=== PATIENT | male | born 1970 | race Caucasian/White ===

== ENCOUNTER 2020-07-28 20:53 | Emergency (ER) | payer OTHER, SELFPAY ==
--- NOTE | 2020-07-28 | CT_ITS ---
EXAMINATION: CT CHEST, ABDOMEN AND PELVIS WITHOUT CONTRAST CLINICAL INFORMATION: Fall. Chest pain. Right hip pain. COMPARISON: None. TECHNIQUE: Multidetector volumetric CT imaging of the chest, abdomen and pelvis was obtained without oral or intravenous contrast. Coronal and sagittal reformatted images are performed at the CT scanner [This CT examination was performed using dose optimization techniques as appropriate, variously including the following: *Automated exposure control *Adjustment of mA and/or kV according to patient size (this includes techniques or standardized protocols for targeted exams where dose is matched to indication/reason for exam; i.e. extremities or head) *Use of iterative reconstruction technique] DLP: 1302 mGy-cm. FINDINGS: CT CHEST: Lungs: Mild centrilobular emphysematous change of lungs. There is no acute infiltrate. No interstitial reticular changes. No bronchiectasis. Lung nodules: Right lun. Right lower lobe axial image 43 series 6, 8 mm smooth bordered nodule Left lung: No suspicious lung nodules. Mediastinum: No mediastinal mass or fluid collection. No hematoma. Moderate volume of coronary artery calcifications. Small volume of calcifications of thoracic aorta at the thoracic aortic arch. Pleura: There is no pleural effusion. No pleural mass or thickening. Axilla: No lymphadenopathy. CT ABDOMEN AND PELVIS: Liver, Gallbladder and Biliary Tree: The liver is normal in size, shape, and attenuation. No focal hepatic lesion or biliary ductal dilatation is present. Gallbladder is contracted. No bile duct dilatation. Pancreas: No acute change of the pancreas. No mass. No pancreatic duct dilatation. Spleen: Spleen normal in size and contour. No focal lesion. Adrenal Glands: Adrenal glands are normal in size. No focal mass. Kidneys and Ureters: The kidneys are normal in size, shape, and attenuation. No hydronephrosis, hydroureter, or calculi seen. No perinephric stranding. Bladder: Unremarkable. Gastrointestinal Tract: The small and large bowel are unremarkable. The appendix is unremarkable. Mesentery: No focal inflammation. No free fluid. No free air. Abdominal Wall: No significant hernia is appreciated. Lymph Nodes: Normal. Vascular: Vascular calcifications of aorta and iliac arteries. No aneurysm. Pelvic Viscera: Unremarkable. Osseous Structures: Vacuum disc phenomenon L5-S1. There is osteosclerosis and spurring of the vertebral endplates. Orthopedic anchor in the left glenoid. Acute fractures: 1. There is an acute comminuted fracture of the right clavicle with displacement of fracture fragments. 2. There is an acute fracture of the right acetabulum involving the anterior column. Fracture fragments slightly displaced. IMPRESSION: 1. Acute fracture of the right clavicle. 2. Acute fracture of the anterior column of the right acetabulum. 3. There is mild emphysematous change of lungs. 8 mm smooth bordered lung nodule in right lower lobe. Various management parameters for solitary pulmonary nodules are in the literature. According to the UPDATED 2017 Fleischner Society recommendations, the advised follow-up imaging for a single solid nodule measuring 8 mm or greater is: Consider CT, PET/CT, or tissue sampling at 3 months. Reference: Guidelines for Management of Incidental Pulmonary Nodules Detected on CT Images: From the Fleischner Society 2017.
[2020-07-28 21:06] VITALS: BP 141/86; BP 170/94; PULSE 88; PULSE 89; RESP 18; TEMP 37.1; O2SAT 100; O2SAT 98; BMI 27.5
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
[2020-07-28 22:18] VITALS: BP 157/104; PULSE 79; RESP 16; O2SAT 96
[2020-07-28 22:35] LABS: MANUAL DIFF FLAG NO
[2020-07-28 22:37] LABS: Basophils Absolute Auto 0.1 X10*3/uL (0.0-0.2); Basophils Percent Auto 0.4 % (0-2); Eosinophils Absolute Auto 0.1 X10*3/uL (0.0-0.4); Eosinophils Percent Auto 0.5 % (0-4); Hematocrit 42.7 % (42-52); Hemoglobin 14.4 g/dl (14.0-18.0); Imm Gran Abs Auto 0.18 X10*3/uL (0.00-0.03); Imm Gran Pct Auto 0.9 % (0.0-0.4); Lymphocytes Absolute Auto 1.8 X10*3/uL (1.2-4.9); Lymphocytes Percent Auto 9.3 % (20-40); Mean Corpuscular HGB Conc 33.7 g/dl (31.0-36.0); Mean Corpuscular Hemoglobin 29.4 pg (27.0-33.0); Mean Corpuscular Volume 87.1 fL (80-98); Monocytes Percent Auto 5.2 % (2-11); Neutrophils Absolute Auto 16.4 X10*3/uL (2.0-8.3); Neutrophils Percent Auto 83.7 % (45-73); Platelet Count 242 X10*3/uL (160-400); Red Cell Distribution Width 13.2 % (11.0-16.0); White Blood Count 19.6 X10*3/uL (4.8-10.8)
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
[2020-07-28 23:04] LABS: Anion Gap 12 (12-20); Blood Urea Nitrogen 17 mg/dL (9-16); Calcium 9.1 mg/dL (8.4-10.2); Carbon Dioxide 28 mmol/L (22-29); Chloride 104 mmol/L (96-108); Creatinine Clr Calc Pharmacy 97.1; Estimated Glomerular Filt Rate > 60; Glucose Random 102 mg/dL (60-115); Sodium 140 mmol/L (135-145)
[2020-07-28 23:10] LABS: Troponin-I High Sensitivity 3.7 ng/L (<3.5-35.0)
[2020-07-28] MEDS: 0.9 % Sodium Chloride 1,000 ML 999 ML IVCONT (23:55)
[2020-07-29] VITALS: BP 153/93; PULSE 79; RESP 18; O2SAT 96
--- NOTE | 2020-07-29 | XR_ITS ---
EXAMINATION: XR HIP, RIGHT CLINICAL INFORMATION: Fracture COMPARISON: CT 07/28/2020 TECHNIQUE: 1 view of the right hip. FINDINGS: Nondisplaced fracture of the right acetabulum is noted extending to the lateral aspect of the superior pubic ramus. The pubic symphysis is well aligned. The right sacroiliac joint is intact. The femoral head articulates appropriately with the acetabulum. IMPRESSION: Nondisplaced right acetabular/superior pubic ramus fracture
--- NOTE | 2020-07-29 | XR_ITS ---
EXAMINATION: XR SHOULDER, RIGHT CLINICAL INFORMATION: Fracture COMPARISON: CT 07/28/2020 TECHNIQUE: One view of the right shoulder. FINDINGS: Comminuted right midclavicular fracture is again noted. There is inferior displacement of the distal fragment by one half shaft width. The acromioclavicular joint remains aligned. The glenohumeral joint remains aligned. The visualized ribs are intact. IMPRESSION: Comminuted right midclavicular fracture.
[2020-07-29 00:01] VITALS: RESP 20
[2020-07-29] MEDS: Morphine Sulfate 4 MG/ML CARTRIDGE IVPUSH (00:01)
[2020-07-29] MEDS: ondansetron HCL 4 MG/2 ML VIAL IVPUSH (00:01)
[2020-07-29] MEDS: HYDROmorphone HCl 1 MG/ML SYRINGE IVPUSH ×3 (00:32→02:08)
--- NOTE | 2020-07-29 00:51 | PC.NURSE ---
[facility] PT TX LINE CALL AT JUANA BARRAGAN REQUEST FOR TRAUMA TRANSFER @ THIS TIME SARA ANSWERS, TAKES PT INFO AND CALL BACK NUMBER AND SAYS SHE WILL CALL BACK FOR LAUREL WITH MD ON THE LINE SOON
--- NOTE | 2020-07-29 00:57 | PC.NURSE ---
RETURN CALL FROM SARA FROM [facility] PT TX LINE @ THIS TIME ASKS TO SPEAK WITH JUANA BARRAGAN TAKES OVER CALL RIGHT AWAY IS GIVEN ACCEPTING MD CHE OTT IS TOLD TO SEND THE PT TO [facility] ER
[2020-07-29 00:59] VITALS: BP 174/85; PULSE 93; RESP 18; O2SAT 95
[2020-07-29 02:00] VITALS: BP 150/74; PULSE 81; RESP 16; TEMP 37.1
--- NOTE | 2020-07-29 02:19 | PC.NURSE ---
NURSE TO NURSE GIVE TO GERARDO AT [facility].
== END 2020-07-29 02:42 | disposition short-term general hospital (02) ==
PROVIDERS: Nurse Practitioner Family; Emergency Provider Emergency Medicine; PCP Internal Medicine
DX: S72.001A Fracture of unspecified part of neck of right femur, initial encounter for closed fracture (principal); S42.021A Displaced fracture of shaft of right clavicle, initial encounter for closed fracture; V18.0XXA Pedal cycle driver injured in noncollision transport accident in nontraffic accident, initial encounter; R91.8 Other nonspecific abnormal finding of lung field; F17.200 Nicotine dependence, unspecified, uncomplicated; Y93.55 Activity, bike riding; Y92.414 Local residential or business street as the place of occurrence of the external cause; Y99.8 Other external cause status
CPT/HCPCS: 36415; 71250; 73020; 73501; 74176; 80048; 84484; 85025; 90471; 90715; 93005; 96361; 96374; 96375; 96376; 99285; 99291; J1170; J2270; J2405

== ENCOUNTER 2022-05-22 09:24 | Emergency (ER) | payer OTHER, SELFPAY ==
--- NOTE | ~2022-05-22 | XR_ITS ---
EXAMINATION: XR KNEE, LEFT CLINICAL INFORMATION: Pain. COMPARISON: None TECHNIQUE: Four views of the left knee. FINDINGS: No significant tricompartmental degenerative joint changes are seen. There is no acute fracture or dislocation. There is no joint effusion. Moderate prepatellar/pretibial soft tissue swelling is seen. XR/XR knee LT 2V IMPRESSION: Moderate prepatellar/pretibial soft tissue swelling without acute underlying osseous abnormality.
[2022-05-22 09:48] VITALS: BP 173/93; PULSE 102; RESP 20; TEMP 37.2; O2SAT 98; BMI 26.6
--- NOTE | 2022-05-22 10:00 | ED.GENADULT ---
HPI - General Adult General Chief complaint: Skin/Abscess/Foreign Body <JUANA Ward - Last Filed: 05/22/22 13:58> Stated complaint: ingrown hair on L knee <JUANA Wrad Last Filed: 05/22/22 13:58> Time Seen by Provider: 05/22/22 09:55 <JUANA Ward Last Filed: 05/22/22 13:58> Source: patient <JUANA Ward Last Filed: 05/22/22 13:58> Mode of arrival: ambulatory (limping) <JUANA Ward Last Filed: 05/22/22 13:58> Limitations: no limitations <JUANA Ward Last Filed: 05/22/22 13:58> History of Present Illness HPI narrative: Patient is a 52 year old male presenting to the emergency department today with left lower leg pain and feeling unwell. Patient states that this last Sunday, he picked open an ingrown hair and now has swelling and redness. Patient states that he now can't bear weight on his left leg. Patient states that he has not seen a doctor in at least a decade. Patient denies any dizziness, lightheadedness, abdominal pain, nausea, vomiting, blurry vision, double vision, loss of vision, chest pain, difficulty breathing, shortness of breath, back pain, night sweats, pain with urination, increased urinary frequency, increased urinary urgency, blood in his urine or stool, syncope or a near syncopal episode, recent trauma or falls, bowel incontinence, bladder incontinence, bowel retention, bladder retention, or any other complaints at this time. <JUANA Ward Last Filed: 05/22/22 13:58> Onset (ago): day(s) (2) <JUANA Ward - Last Filed: 05/22/22 13:58> Location: left and lower extremity <JUANA Ward Last Filed: 05/22/22 13:58> Radiation: non-radiation <JUANA Ward Last Filed: 05/22/22 13:58> Severity: moderate <JUANA Ward Last Filed: 05/22/22 13:58> Severity scale (1-10): 5 <JUANA Ward Last Filed: 05/22/22 13:58> Quality: aching <JUANA Ward - Last Filed: 05/22/22 13:58> Pain Consistency: constant <JUANA Ward - Last Filed: 05/22/22 13:58> Relieving factors: none <JUANA Ward Last Filed: 05/22/22 13:58> Exacerbating factors: movement <JUANA Ward - Last Filed: 05/22/22 13:58> Associated symptoms: diaphoresis and fever/chills <JUANA Ward - Last Filed: 05/22/22 13:58> Treatments prior to arrival: none <JUANA Ward Last Filed: 05/22/22 13:58> Related Data Home medications: Previous Rx's Medication Instructions Recorded cephalexin 500 mg capsule 500 mg PO Q6H 7 days #28 caps 05/22/22 doxycycline hyclate 100 mg tablet 100 mg PO BID 7 days #14 tabs 05/22/22 <JUANA Ward - Last Filed: 05/22/22 13:58> Allergies/adverse reactions: Allergies Allergy/AdvReac Type Severity Reaction Status Date / Time No Known Allergies Allergy Verified 07/28/20 22:16 <JUANA Ward - Last Filed: 05/22/22 13:58> Review of Systems Constitutional: Constitutional: Reports no additional constitutional complaints, Denies chills, Reports fever(s) and Denies night sweats <JUANA Ward - Last Filed: 05/22/22 13:58> Eyes: Eyes: Reports no additional eye complaints, Denies blurry vision, Denies change in vision, Denies diplopia, Denies eye discharge, Denies loss of vision and Denies eye pain <JUANA Ward - Last Filed: 05/22/22 13:58> ENT: Denies dizziness <JUANA Ward - Last Filed: 05/22/22 13:58> Cardiovascular: Cardiovascular: Reports no additional cardiovascular complaints, Denies chest pain, Denies lightheadedness, Denies Loss of Consciousness and Denies dyspnea <JUANA Ward - Last Filed: 05/22/22 13:58> Respiratory: Respiratory: Reports no additional respiratory complaints and Denies dyspnea <JUANA Ward - Last Filed: 05/22/22 13:58> Gastrointestinal: Gastrointestinal: Reports no additional gastrointestinal complaints, Denies abdominal pain, Denies melena, Denies hematochezia, Denies change in bowel habits and Denies change in stool character <JUANA Ward - Last Filed: 05/22/22 13:58> Genitourinary: Genitourinary: Reports no additional male genitourinary complaints, Denies hematuria, Denies oliguria, Denies difficulty urinating, Denies dysuria, Denies urinary frequency, Denies urinary hesitancy, Denies urinary incontinence and Denies urinary urgency <JUANA Ward - Last Filed: 05/22/22 13:58> Musculoskeletal: Musculoskeletal: Reports no additional musculoskeletal complaints, Denies numbness and Denies tingling <JUANA Ward - Last Filed: 05/22/22 13:58> Comments: left knee pain and swelling <JUANA Ward - Last Filed: 05/22/22 13:58> Neurologic: Denies dizziness, Denies loss of vision, Denies numbness and Denies tingling <JUANA Ward - Last Filed: 05/22/22 13:58> Psychiatric: Psychiatric: Reports no additional psychiatric complaints <JUANA Ward - Last Filed: 05/22/22 13:58> Endocrine: Endocrine: Reports no additional endocrine complaints <JUANA Ward - Last Filed: 05/22/22 13:58> Hematologic/Lymphatic: Hematologic/Lymphatic: Reports no additional hematologic/lymphatic complaints <JUANA Ward - Last Filed: 05/22/22 13:58> Allergic/Immunologic: Allergic/Immunologic: Reports no additional allergic/immunologic complaints <JUANA Ward - Last Filed: 05/22/22 13:58> PMFSH Past Medical History Attestation statement: The following information was validated with the patient. <JUANA Ward Last Filed: 05/22/22 13:58> Source: old records reviewed <JUANA Ward Last Filed: 05/22/22 13:58> Surgical History: Surgical History H/O shoulder surgery <JUANA Ward - Last Filed: 05/22/22 13:58> Social History Social History: Social History Alcohol intake: never Patient Tobacco Use Status: Current everyday Tobacco user Use of substances other than those prescribed or required for medical reasons: No Substance Use Type: Marijuana Advance Directives: No Advance Directives Information Provided: Yes <JUANA Ward - Last Filed: 05/22/22 13:58> Physical Exam ED Vital Signs: Vital Signs - 24 hr 05/22/22 09:48 05/22/22 13:42 Temperature 99 F Pulse Rate 102 H 96 Respiratory Rate 20 18 Blood Pressure 173/93 H 173/89 H Pulse Oximetry 98 98 Oxygen Delivery Method Room Air Room Air BMI result Body Mass Index 26.6 <JUANA Ward - Last Filed: 05/22/22 13:58> Vital Signs - 24 hr 05/22/22 09:48 05/22/22 13:42 Temperature 99 F Pulse Rate 102 H 96 Respiratory Rate 20 18 Blood Pressure 173/93 H 173/89 H Pulse Oximetry 98 98 Oxygen Delivery Method Room Air Room Air BMI result Body Mass Index 26.6 <Bala Boyer MD - Last Filed: 05/22/22 10:28> Const General: cooperative, no acute distress, alert and awake <JUANA Ward - Last Filed: 05/22/22 13:58> Nutritional Appearance: well nourished <JUANA Ward - Last Filed: 05/22/22 13:58> Orientation/consciousness: patient oriented x3 <JUANA Ward - Last Filed: 05/22/22 13:58> Limitations: no limitations <JUANA Ward Last Filed: 05/22/22 13:58> HENMT Head: Yes normal to inspection and Yes atraumatic <JUANA Ward - Last Filed: 05/22/22 13:58> Ears: hearing grossly normal bilaterally and external ears normal <JUANA Ward Last Filed: 05/22/22 13:58> General nose exam: Normal external nose present, no nasal discharge noted and no epistaxis <Dominique Vanegas WA - Last Filed: 05/22/22 13:58> Face and sinus: Yes normal facial exam, No abrasion and No laceration <Dominique Vanegas WA - Last Filed: 05/22/22 13:58> Mouth: Normal oral and palatal mucosa present, no drooling and no muffled voice <Dominique Vanegas WA - Last Filed: 05/22/22 13:58> Eyes General: appearance normal, both eyes and all related structures <Dominique Vanegas [place] - Last Filed: 05/22/22 13:58> Periorbital: periorbital findings normal <Dominique Vanegas WA - Last Filed: 05/22/22 13:58> Eyelids: Yes eyelids normal <Dominique Vanegas WA - Last Filed: 05/22/22 13:58> Conjunctivae: conjunctivae normal <Dominique Vanegas WA - Last Filed: 05/22/22 13:58> Pupils: Equal, round and reactive pupils present <Dominique Velezzane [place] - Last Filed: 05/22/22 13:58> EOM: EOMs intact bilaterally <Dominique Velezzane WA - Last Filed: 05/22/22 13:58> Neck Neck: Yes normal visual inspection, Yes full ROM and Yes no lymphadenopathy <Dominique Velezzane [place] - Last Filed: 05/22/22 13:58> Chest Chest palpation & inspection: normal inspection of the chest <Dominique Velezzane [facility] Last Filed: 05/22/22 13:58> Resp Effort & Inspection: normal respiratory effort and able to speak in complete sentences <Dominique Velezzane [facility] Last Filed: 05/22/22 13:58> Auscultation: clear to auscultation bilaterally <Dominique Velezzane [place] - Last Filed: 05/22/22 13:58> Cardio Rate: tachycardic <Dominique Velezzane [place] - Last Filed: 05/22/22 13:58> Rhythm: regular rhythm <Dominique VelezJUANA degroot - Last Filed: 05/22/22 13:58> GI Inspection: Yes normal to inspection <Dominique Guilherme [place] - Last Filed: 05/22/22 13:58> Skin Other: erythema to the left knee with 1 small open area of drainage <Dominique Velezzane PA - Last Filed: 05/22/22 13:58> Neuro General: patient oriented x3 and moves all extremities <Dominique Velezzane PA - Last Filed: 05/22/22 13:58> Cranial nerves: Yes Equal, round and reactive pupils present <Dominique Vanegas PA - Last Filed: 05/22/22 13:58> Cognition (Neuro): normal cognition <Dominique Velezzane PA - Last Filed: 05/22/22 13:58> Motor exam (neuro): 5/5 motor strength present throughout <Dominique Velezzane PA - Last Filed: 05/22/22 13:58> Sensory Exam: Normal double simultaneous stimulation for sensation <Dominique Velezzane PA - Last Filed: 05/22/22 13:58> Coordination: [id number] test normal <Dominique Velezzane PA - Last Filed: 05/22/22 13:58> Extrem Other: minimal pain with ROM of the left knee with left knee swelling and erythema <Dominique Velezzane PA - Last Filed: 05/22/22 13:58> General: Yes capillary refill normal <Dominique Velezzane PA - Last Filed: 05/22/22 13:58> Psych Appearance: grossly normal <Dominiqueaureliano Velezzane PA - Last Filed: 05/22/22 13:58> Mental Status: mental status grossly normal <Dominique VelezJUANA degroot - Last Filed: 05/22/22 13:58> Affect: normal affect <Dominique VanegasJUANA degroot - Last Filed: 05/22/22 13:58> Attitude: cooperative <Dominique Velezzane PA - Last Filed: 05/22/22 13:58> Thought process: Normal thought process present <JUANA Ward - Last Filed: 05/22/22 13:58> Thought content: Normal thought content present <Dominique JUANA Vanegas - Last Filed: 05/22/22 13:58> Insight: Good insight present (Psych) <Dominique JUANA Vanegas - Last Filed: 05/22/22 13:58> Course Reevaluation(s) Reevaluation #1: patient with erythema down his leg with light discharge from skin just below the knee. Patient making sepsis criteria will admit for cellulitis. Knee with no effusion, FROM no evidence of septic joint. <Bala Boyer MD - Last Filed: 05/22/22 10:28> Time: 10: <Bala Boyer MD - Last Filed: 05/22/22 10:28> Medical Decision Making MDM Narrative Medical decision making narrative: Patient is a 52 year old male presenting to the emergency department today with left lower leg pain. Patient's physical exam showed a tachycardic and febrile individual with significant erythema, warmth, and swelling to the left lower leg, consistent with cellulitis. Patient's blood work showed an elevated white blood cell count of 18.3, ESR of 23, and a CRP of 14.46. Patient's left knee x-ray showed no acute mick process. Patient was immediately called a sepsis alert and received IV Vancomycin and Rocephin. Patient did not have an elevated lactic acid at 1.3 and was never hypotensive here in the department. Patient did not need fluid bolus. Patient was advised the best course of action would be admission to the hospital however, the patient refused. I explained, in detail, the risks of the patient leaving the hospital against medical advice including , permanent disability, and increased pain. Patient verbalized understanding of all risks and stated that he would like to leave anyway. I explained my physical exam findings as well as all test results to the patient. I answered all questions asked by the patient. I stressed the importance of the patient taking his medication as prescribed. I stressed the importance of the patient following up with his primary care provider. I stressed the importance of the patient returning in 3 days for a re-evaluation. I stressed the importance of the patient returning to the emergency department immediately if his symptoms were to worsen or if he were to develop any dizziness, shortness of breath, difficulty breathing, chest pain, blurry vision, loss of vision, nausea, vomiting, abdominal pain, fever, chills, back pain, or any other complaints. Patient verbalized agreement and understanding with this treatment plan and left against medical advice. <JUANA Ward - Last Filed: 05/22/22 13:58> Differential Diagnosis Differential Diagnosis: cellulitis <JUANA Ward - Last Filed: 05/22/22 13:58> Medical Records Medical records reviewed: Yes I reviewed the patient's medical records. <JUANA Ward - Last Filed: 05/22/22 13:58> Lab Data Lab results reviewed: Yes I reviewed the patient's lab results. <JUANA Ward - Last Filed: 05/22/22 13:58> Result diagrams: : 05/22/22 10:32 05/22/22 10:32 <JUANA Ward - Last Filed: 05/22/22 13:58> Labs: Lab Results 05/22/22 05/22/22 05/22/22 Range/Units 10:32 10:32 10:32 WBC 18.3 H (4.8-10.8) X10*3/uL RBC 5.40 (4.60-5.80) X10*6/uL Hgb 15.3 (14.0-18.0) g/dl Hct 46.1 (42.0-52.0) % MCV 85.4 (80.0-98.0) fL MCH 28.3 (27.0-33.0) pg MCHC 33.2 (31.0-36.0) g/dl RDW 13.2 (11.0-16.0) % Plt Count 207 (160-400) X10*3/uL MPV 10.6 (9.4-12.4) fL Immature Gran % (Auto) 0.5 H (0.0-0.4) % Neut % (Auto) 85.9 H (45-73) % Lymph % (Auto) 7.4 L (20-40) % [place] % (Auto) 5.4 (2-11) % Eos % (Auto) 0.4 (0-4) % Baso % (Auto) 0.4 (0-2) % Lymph # (Auto) 1.4 (1.2-4.9) X10*3/uL [place] # (Auto) 1.0 (0.1-1.2) X10*3/uL Eos # (Auto) 0.1 (0.0-0.4) X10*3/uL Baso # (Auto) 0.1 (0.0-0.2) X10*3/uL Abs Immat Gran (auto) 0.10 H (0.00-0.03) X10*3/uL Absolute Neuts (auto) 15.7 H (2.0-8.3) x10*3/uL Absolute Nucleated RBC 0.000 (0.0-0.012) X10*3/uL Nucleated RBC % (auto) 0.0 (0.0-0.2) /100WBC ESR (0-15) MM/HR Sodium 136 (135-145) mmol/L Potassium 4.0 (3.3-5.1) mmol/L Chloride 102 (96-108) mmol/L Carbon Dioxide 24 (22-29) mmol/L Anion Gap 14 (12-20) BUN 12 (9-16) mg/dL Creatinine 0.84 (0.5-1.4) mg/dL Estim Creat Clear Calc 93.9 Estimated GFR > 60 Random Glucose 177 H D (60-115) mg/dL Lactic Acid (0.5-2.0) mmol/L Calcium 9.0 (8.4-10.2) mg/dL Magnesium 2.0 (1.6-2.6) mg/dL Total Bilirubin 0.5 (0.0-1.0) mg/dL AST 19 (5-37) U/L ALT 19 (0-40) U/L Alkaline Phosphatase 77 (39-117) U/L C-Reactive Protein 14.46 H (< or = 0.50) mg/dL Total Protein 7.0 (6.5-8.0) g/dL Albumin 4.0 (3.5-5.0) g/dL COVID-19 (GABRIEL) Negative (Negative) COVID-19 Clin Com See Note 05/22/22 05/22/22 Range/Units 10:32 10:35 WBC (4.8-10.8) X10*3/uL RBC (4.60-5.80) X10*6/uL Hgb (14.0-18.0) g/dl Hct (42.0-52.0) % MCV (80.0-98.0) fL MCH (27.0-33.0) pg MCHC (31.0-36.0) g/dl RDW (11.0-16.0) % Plt Count (160-400) X10*3/uL MPV (9.4-12.4) fL Immature Gran % (Auto) (0.0-0.4) % Neut % (Auto) (45-73) % Lymph % (Auto) (20-40) % [place] % (Auto) (2-11) % Eos % (Auto) (0-4) % Baso % (Auto) (0-2) % Lymph # (Auto) (1.2-4.9) X10*3/uL [place] # (Auto) (0.1-1.2) X10*3/uL Eos # (Auto) (0.0-0.4) X10*3/uL Baso # (Auto) (0.0-0.2) X10*3/uL Abs Immat Gran (auto) (0.00-0.03) X10*3/uL Absolute Neuts (auto) (2.0-8.3) x10*3/uL Absolute Nucleated RBC (0.0-0.012) X10*3/uL Nucleated RBC % (auto) (0.0-0.2) /100WBC ESR 23 H (0-15) MM/HR Sodium (135-145) mmol/L Potassium (3.3-5.1) mmol/L Chloride (96-108) mmol/L Carbon Dioxide (22-29) mmol/L Anion Gap (12-20) BUN (9-16) mg/dL Creatinine (0.5-1.4) mg/dL Estim Creat Clear Calc Estimated GFR Random Glucose (60-115) mg/dL Lactic Acid 1.3 (0.5-2.0) mmol/L Calcium (8.4-10.2) mg/dL Magnesium (1.6-2.6) mg/dL Total Bilirubin (0.0-1.0) mg/dL AST (5-37) U/L ALT (0-40) U/L Alkaline Phosphatase (39-117) U/L C-Reactive Protein (< or = 0.50) mg/dL Total Protein (6.5-8.0) g/dL Albumin (3.5-5.0) g/dL COVID-19 (GABRIEL) (Negative) COVID-19 Clin Com <JUANA Ward - Last Filed: 05/22/22 13:58> Lab Results 05/22/22 05/22/22 05/22/22 Range/Units 10:32 10:32 10:32 WBC 18.3 H (4.8-10.8) X10*3/uL RBC 5.40 (4.60-5.80) X10*6/uL Hgb 15.3 (14.0-18.0) g/dl Hct 46.1 (42.0-52.0) % MCV 85.4 (80.0-98.0) fL MCH 28.3 (27.0-33.0) pg MCHC 33.2 (31.0-36.0) g/dl RDW 13.2 (11.0-16.0) % Plt Count 207 (160-400) X10*3/uL MPV 10.6 (9.4-12.4) fL Immature Gran % (Auto) 0.5 H (0.0-0.4) % Neut % (Auto) 85.9 H (45-73) % Lymph % (Auto) 7.4 L (20-40) % [place] % (Auto) 5.4 (2-11) % Eos % (Auto) 0.4 (0-4) % Baso % (Auto) 0.4 (0-2) % Lymph # (Auto) 1.4 (1.2-4.9) X10*3/uL [place] # (Auto) 1.0 (0.1-1.2) X10*3/uL Eos # (Auto) 0.1 (0.0-0.4) X10*3/uL Baso # (Auto) 0.1 (0.0-0.2) X10*3/uL Abs Immat Gran (auto) 0.10 H (0.00-0.03) X10*3/uL Absolute Neuts (auto) 15.7 H (2.0-8.3) x10*3/uL Absolute Nucleated RBC 0.000 (0.0-0.012) X10*3/uL Nucleated RBC % (auto) 0.0 (0.0-0.2) /100WBC ESR (0-15) MM/HR Sodium 136 (135-145) mmol/L Potassium 4.0 (3.3-5.1) mmol/L Chloride 102 (96-108) mmol/L Carbon Dioxide 24 (22-29) mmol/L Anion Gap 14 (12-20) BUN 12 (9-16) mg/dL Creatinine 0.84 (0.5-1.4) mg/dL Estim Creat Clear Calc 93.9 Estimated GFR > 60 Random Glucose 177 H D (60-115) mg/dL Lactic Acid (0.5-2.0) mmol/L Calcium 9.0 (8.4-10.2) mg/dL Magnesium 2.0 (1.6-2.6) mg/dL Total Bilirubin 0.5 (0.0-1.0) mg/dL AST 19 (5-37) U/L ALT 19 (0-40) U/L Alkaline Phosphatase 77 (39-117) U/L C-Reactive Protein 14.46 H (< or = 0.50) mg/dL Total Protein 7.0 (6.5-8.0) g/dL Albumin 4.0 (3.5-5.0) g/dL COVID-19 (GABRIEL) Negative (Negative) COVID-19 Clin Com See Note 05/22/22 05/22/22 Range/Units 10:32 10:35 WBC (4.8-10.8) X10*3/uL RBC (4.60-5.80) X10*6/uL Hgb (14.0-18.0) g/dl Hct (42.0-52.0) % MCV (80.0-98.0) fL MCH (27.0-33.0) pg MCHC (31.0-36.0) g/dl RDW (11.0-16.0) % Plt Count (160-400) X10*3/uL MPV (9.4-12.4) fL Immature Gran % (Auto) (0.0-0.4) % Neut % (Auto) (45-73) % Lymph % (Auto) (20-40) % [place] % (Auto) (2-11) % Eos % (Auto) (0-4) % Baso % (Auto) (0-2) % Lymph # (Auto) (1.2-4.9) X10*3/uL [place] # (Auto) (0.1-1.2) X10*3/uL Eos # (Auto) (0.0-0.4) X10*3/uL Baso # (Auto) (0.0-0.2) X10*3/uL Abs Immat Gran (auto) (0.00-0.03) X10*3/uL Absolute Neuts (auto) (2.0-8.3) x10*3/uL Absolute Nucleated RBC (0.0-0.012) X10*3/uL Nucleated RBC % (auto) (0.0-0.2) /100WBC ESR 23 H (0-15) MM/HR Sodium (135-145) mmol/L Potassium (3.3-5.1) mmol/L Chloride (96-108) mmol/L Carbon Dioxide (22-29) mmol/L Anion Gap (12-20) BUN (9-16) mg/dL Creatinine (0.5-1.4) mg/dL Estim Creat Clear Calc Estimated GFR Random Glucose (60-115) mg/dL Lactic Acid 1.3 (0.5-2.0) mmol/L Calcium (8.4-10.2) mg/dL Magnesium (1.6-2.6) mg/dL Total Bilirubin (0.0-1.0) mg/dL AST (5-37) U/L ALT (0-40) U/L Alkaline Phosphatase (39-117) U/L C-Reactive Protein (< or = 0.50) mg/dL Total Protein (6.5-8.0) g/dL Albumin (3.5-5.0) g/dL COVID-19 (GABRIEL) (Negative) COVID-19 Clin Com <Bala Boyer MD - Last Filed: 05/22/22 10:28> Imaging Data Left knee x-ray: Attestation: I personally reviewed and interpreted this imaging study as follows: <JUANA Ward - Last Filed: 05/22/22 13:58> My impression: No acute mick process. <JUANA Ward - Last Filed: 05/22/22 13:58> Radiologist's impression: EXAMINATION: XR KNEE, LEFT CLINICAL INFORMATION: Pain.? COMPARISON: None? TECHNIQUE: Four views of the left knee. FINDINGS: No significant tricompartmental degenerative joint changes are seen. There is no acute fracture or dislocation. There is no joint effusion. Moderate prepatellar/pretibial soft tissue swelling is seen. XR/XR knee LT 2V IMPRESSION: Moderate prepatellar/pretibial soft tissue swelling without acute underlying osseous abnormality. Dictated By: Topher Chau MD Signed By: Electronically signed by Topher Chau MD 05/22/22 1101 <JUANA Ward - Last Filed: 05/22/22 13:58> Critical Care Time Critical Care Time Critical Care Time: Yes <JUANA Ward - Last Filed: 05/22/22 13:58> Total Critical Care Time: 30 <JUANA Ward - Last Filed: 05/22/22 13:58> Attestation: I spent 30 minutes of Critical Care Time with this patient. This does not include time spent on separately reported billable procedures. <JUANA Ward - Last Filed: 05/22/22 13:58> Discharge Plan Discharge Clinical Impression: Cellulitis <JUANA Ward - Last Filed: 05/22/22 13:58> Patient Disposition: Left Against Medical Advice <JUANA Ward - Last Filed: 05/22/22 13:58> Instructions: Cellulitis (ED) <JUANA Ward - Last Filed: 05/22/22 13:58> Additional Instructions: Return to the ED in 3 days for a wound recheck. Follow up with your primary care provider. Return to the emergency department immediately if your symptoms worsen or if you develop any dizziness, shortness of breath, difficulty breathing, chest pain, blurry vision, loss of vision, nausea, vomiting, abdominal pain, fever, chills, back pain, or any other complaints. <JUANA Ward - Last Filed: 05/22/22 13:58> Prescriptions: New cephalexin 500 mg capsule 500 mg PO Q6H 7 Days Qty: 28 0RF doxycycline hyclate 100 mg tablet 100 mg PO BID 7 Days Qty: 14 0RF <JUANA Ward - Last Filed: 05/22/22 13:58> Referrals: Melvin Wallace MD [Primary Care Provider] - <JUANA Ward - Last Filed: 05/22/22 13:58> Stand Alone Forms: Against Medical Advice <JUANA Ward - Last Filed: 05/22/22 13:58> Interventions: ED Discharge Assessment Last Done: 05/22/22 13:48 <JUANA Ward - Last Filed: 05/22/22 13:58> Discharge Date/Time: 05/22/22 13:49 <JUANA Ward - Last Filed: 05/22/22 13:58> Print Language: Ethiopian <JUANA Ward - Last Filed: 05/22/22 13:58>
[2022-05-22] MEDS: cefTRIAXone sodium 2 GM in 0.9 % Sodium Chloride 50 ML IV (10:38)
[2022-05-22 10:39] LABS: MANUAL DIFF FLAG NO
[2022-05-22 10:41] LABS: Basophils Absolute Auto 0.1 X10*3/uL (0.0-0.2); Basophils Percent Auto 0.4 % (0-2); Eosinophils Absolute Auto 0.1 X10*3/uL (0.0-0.4); Eosinophils Percent Auto 0.4 % (0-4); Hematocrit 46.1 % (42.0-52.0); Hemoglobin 15.3 g/dl (14.0-18.0); Imm Gran Pct Auto 0.5 % (0.0-0.4); Lymphocytes Absolute Auto 1.4 X10*3/uL (1.2-4.9); Lymphocytes Percent Auto 7.4 % (20-40); Mean Corpuscular HGB Conc 33.2 g/dl (31.0-36.0); Mean Corpuscular Hemoglobin 28.3 pg (27.0-33.0); Mean Corpuscular Volume 85.4 fL (80.0-98.0); Mean Platelet Volume 10.6 fL (9.4-12.4); Monocytes Percent Auto 5.4 % (2-11); Neutrophils Absolute Auto 15.7 x10*3/uL (2.0-8.3); Neutrophils Percent Auto 85.9 % (45-73); Platelet Count 207 X10*3/uL (160-400); Red Cell Distribution Width 13.2 % (11.0-16.0); White Blood Count 18.3 X10*3/uL (4.8-10.8)
--- NOTE | 2022-05-22 10:52 | PC.NURSE ---
PT SEEN BY PROVIDER UPON ARRIVAL. XRAY COMPLETED. SEPSIS ALERT INITIATED. LABS DRAWN IV INSERTED. IV ABX INFUSING. PHARMACY CALLED FOR VANCO IT IS NOT AVAILABLE IN OUR [facility]
[2022-05-22 10:53] LABS: Lactic Acid 1.3 mmol/L (0.5-2.0)
[2022-05-22 10:56] LABS: COVID-19 Test Negative (Negative)
[2022-05-22 10:59] LABS: Alanine Aminotransferase 19 U/L (0-40); Alkaline Phosphatase 77 U/L (39-117); Anion Gap 14 (12-20); Aspartate Amino Transferase 19 U/L (5-37); Bilirubin Total 0.5 mg/dL (0.0-1.0); Blood Urea Nitrogen 12 mg/dL (9-16); C Reactive Protein 14.46 mg/dL (< or = 0.50); Carbon Dioxide 24 mmol/L (22-29); Chloride 102 mmol/L (96-108); Creatinine Clr Calc Pharmacy 93.9; Estimated Glomerular Filt Rate > 60; Glucose Random 177 mg/dL (60-115); Sodium 136 mmol/L (135-145)
[2022-05-22 11:30] LABS: Erythrocyte Sedimentation Rate 23 MM/HR (0-15)
[2022-05-22] MEDS: Nicotine 21 MG PATCH.TD24 TRANSDERMA (11:55)
[2022-05-22 13:42] VITALS: BP 173/89; PULSE 96; RESP 18; O2SAT 98
== END 2022-05-22 13:49 | disposition left against medical advice (07) ==
PROVIDERS: Physician Assistant Medical; Emergency Provider Emergency Medicine; PCP Internal Medicine
DX: L03.116 Cellulitis of left lower limb (principal); M79.605 Pain in left leg; F17.200 Nicotine dependence, unspecified, uncomplicated; Z71.6 Tobacco abuse counseling; Z20.822 Contact with and (suspected) exposure to COVID-19; Z79.899 Other long term (current) drug therapy
CPT/HCPCS: 73560; 80053; 83605; 83735; 85025; 85652; 86140; 87040; 87635; 96365; 96366; 96367; 96375; 99284; J0696; J3370

== ENCOUNTER 2022-05-29 10:07 | Outpatient (REF) | payer OTHER, SELFPAY ==
[2022-05-29 11:24] LABS: MANUAL DIFF FLAG NO
[2022-05-29 11:26] LABS: Basophils Absolute Auto 0.1 X10*3/uL (0.0-0.2); Basophils Percent Auto 0.9 % (0-2); Eosinophils Absolute Auto 0.2 X10*3/uL (0.0-0.4); Hematocrit 43.3 % (42.0-52.0); Hemoglobin 14.3 g/dl (14.0-18.0); Imm Gran Abs Auto 0.17 X10*3/uL (0.00-0.03); Imm Gran Pct Auto 1.5 % (0.0-0.4); Lymphocytes Absolute Auto 2.5 X10*3/uL (1.2-4.9); Lymphocytes Percent Auto 22.2 % (20-40); Mean Corpuscular Hemoglobin 28.1 pg (27.0-33.0); Mean Corpuscular Volume 85.1 fL (80.0-98.0); Mean Platelet Volume 10.4 fL (9.4-12.4); Monocytes Absolute Auto 0.7 X10*3/uL (0.1-1.2); Monocytes Percent Auto 6.1 % (2-11); Neutrophils Absolute Auto 7.6 x10*3/uL (2.0-8.3); Neutrophils Percent Auto 67.3 % (45-73); Platelet Count 332 X10*3/uL (160-400); Red Blood Count 5.09 X10*6/uL (4.60-5.80); Red Cell Distribution Width 13.2 % (11.0-16.0); White Blood Count 11.3 X10*3/uL (4.8-10.8)
[2022-05-29 11:35] LABS: Estimated Average Glucose 120 mg/dL; Hemoglobin A1C 149.8498 umol/L; Hemoglobin A1c % 5.8 %
[2022-05-29 11:37] LABS: Alanine Aminotransferase 28 U/L (0-40); Albumin Level 3.9 g/dL (3.5-5.0); Alkaline Phosphatase 81 U/L (39-117); Anion Gap 16 (12-20); Aspartate Amino Transferase 16 U/L (5-37); Bilirubin Total 0.3 mg/dL (0.0-1.0); Blood Urea Nitrogen 13 mg/dL (9-16); C Reactive Protein 3.03 mg/dL (< or = 0.50); Calcium 8.7 mg/dL (8.4-10.2); Carbon Dioxide 24 mmol/L (22-29); Chloride 105 mmol/L (96-108); Estimated Glomerular Filt Rate > 60; Glucose Random 108 mg/dL (60-115); Potassium 4.7 mmol/L (3.3-5.1); Sodium 140 mmol/L (135-145)
[2022-05-29 13:17] LABS: Erythrocyte Sedimentation Rate 49 MM/HR (0-15)
== END 2022-05-29 10:08 | disposition home or self-care (01) ==
LOC: HO.HMGCLDS 10:07
PROVIDERS: PCP Internal Medicine; Visit Provider Internal Medicine
DX: R53.83 Other fatigue (principal); L03.90 Cellulitis, unspecified
CPT/HCPCS: 36415; 80053; 83036; 85025; 85652; 86140

== ENCOUNTER 2022-06-06 14:09 | Outpatient (REF) | payer OTHER, SELFPAY ==
--- NOTE | ~2022-06-06 | XR_ITS ---
EXAMINATION: XR CHEST CLINICAL INFORMATION: Questionable pneumonia COMPARISON: None TECHNIQUE: 2 views of the chest were obtained. FINDINGS: Lungs are clear by diaphragm is likely due to mild hyperinflation. No evidence of pneumonia or nodules. Cardiomediastinal silhouette is normal. Hardware is seen in the right clavicle XR/XR chest 2V IMPRESSION: No active cardiopulmonary disease. Emphysematous change
== END 2022-06-06 14:10 | disposition home or self-care (01) ==
LOC: HO.HMGCX 14:09
PROVIDERS: PCP Internal Medicine; Visit Provider Internal Medicine
DX: F17.200 Nicotine dependence, unspecified, uncomplicated (principal); Z87.09 Personal history of other diseases of the respiratory system
CPT/HCPCS: 71046

== ENCOUNTER 2023-11-26 10:26 | Outpatient (REF) | payer MEDICAID, SELFPAY ==
--- NOTE | ~2023-11-26 | XR_ITS ---
EXAMINATION: XR CLAVICLE, RIGHT XR SHOULDER, RIGHT CLINICAL INFORMATION: Trauma COMPARISON: Right shoulder radiograph from 07/29/2020 TECHNIQUE: 3 views of the right shoulder 2 views of the right clavicle FINDINGS: Status post plate and screw fixation of clavicular fracture. Orthopedic hardware is grossly intact. No acute visible fracture or dislocation. Mild degenerative arthropathy of the glenohumeral joint. Joint space alignment are otherwise maintained. Soft tissues are unremarkable. Visualized portions of the chest are unremarkable. XR/XR shoulder RT min 2V IMPRESSION: 1. Status post plate and screw fixation of clavicular fracture. Orthopedic hardware is grossly intact. 2. No acute visible fracture or dislocation. 3. Mild degenerative arthropathy of the glenohumeral joint.
--- NOTE | ~2023-11-26 | XR_ITS ---
EXAMINATION: XR CLAVICLE, RIGHT XR SHOULDER, RIGHT CLINICAL INFORMATION: Trauma COMPARISON: Right shoulder radiograph from 07/29/2020 TECHNIQUE: 3 views of the right shoulder 2 views of the right clavicle FINDINGS: Status post plate and screw fixation of clavicular fracture. Orthopedic hardware is grossly intact. No acute visible fracture or dislocation. Mild degenerative arthropathy of the glenohumeral joint. Joint space alignment are otherwise maintained. Soft tissues are unremarkable. Visualized portions of the chest are unremarkable. XR/XR clavicle RT IMPRESSION: 1. Status post plate and screw fixation of clavicular fracture. Orthopedic hardware is grossly intact. 2. No acute visible fracture or dislocation. 3. Mild degenerative arthropathy of the glenohumeral joint.
== END 2023-11-26 10:27 | disposition home or self-care (01) ==
LOC: HO.HMGCX 10:26
PROVIDERS: PCP Internal Medicine; Visit Provider Internal Medicine
DX: Z98.890 Other specified postprocedural states (principal); M12.9 Arthropathy, unspecified
CPT/HCPCS: 73000; 73030

== ENCOUNTER 2025-07-22 10:47 | Outpatient (REF) | payer OTHER, SELFPAY ==
[2025-07-22 18:12] LABS: MANUAL DIFF FLAG NO
[2025-07-22 18:20] LABS: Hematocrit 49.0 % (42.0-52.0); Hemoglobin 16.2 g/dl (14.0-18.0); Imm Gran Abs Auto 0.04 X10*3/uL (0.00-0.03); Imm Gran Pct Auto 0.4 % (0.0-0.4); Lymphocytes Absolute Auto 2.4 X10*3/uL (1.2-4.9); Mean Corpuscular HGB Conc 33.1 g/dl (31.0-36.0); Mean Corpuscular Hemoglobin 28.3 pg (27.0-33.0); Mean Corpuscular Volume 85.7 fL (80.0-98.0); NRBC Abs Auto 0.000 X10*3/uL (0.0-0.012); NRBC Pct Auto 0.0 /100WBC (0.0-0.2); Platelet Count 282 X10*3/uL (160-400); Red Blood Count 5.72 X10*6/uL (4.60-5.80); White Blood Count 9.3 X10*3/uL (4.8-10.8)
[2025-07-22 18:37] LABS: Alanine Aminotransferase 23 U/L (0-40); Albumin Level 4.3 g/dL (3.5-5.0); Alkaline Phosphatase 83 U/L (39-117); Anion Gap 12 (12-20); Aspartate Amino Transferase 31 U/L (5-37); Blood Urea Nitrogen 18 mg/dL (9-16); Calcium 9.2 mg/dL (8.4-10.2); Carbon Dioxide 23 mmol/L (22-29); Chloride 107 mmol/L (96-108); Cholesterol 215 mg/dL (<200); Estimated Glomerular Filt Rate > 60; HDL Cholesterol 50 mg/dL (>40); Magnesium 2.4 mg/dL (1.6-2.6); Potassium 4.2 mmol/L (3.3-5.1); Sodium 138 mmol/L (135-145); Total Protein 7.3 g/dL (6.5-8.0); Triglycerides 110 mg/dL (<150)
[2025-07-22 19:00] LABS: Folate 13.1 ng/mL (> or = 4.0); Vitamin B12 708 pg/mL (200-900)
[2025-07-23 04:50] LABS: HBS Num1 5.54 mIU/mL (0-7.99); HBsAGNum1 0.51 S/CO (0.00-0.99); HIV Num 1 0.06 S/CO (0.00-0.99); Hepatitis B Surface Antigen Negative (Negative); ~HepC Num1 0.05 S/CO (0.00-0.79); ~Hepatitis B Surface Antibody NONREACTIVE (Nonreactive); ~Hepatitis C Antibody Nonreactive (Nonreactive)
[2025-07-26 05:13] LABS: VITAMIN D (1,25 OH) D3 46 pg/mL; Vit D (1,25-Dihydroxy) Total 46 pg/mL (18-72); Vitamin D (1,25 OH) D2 <8 pg/mL
== END 2025-07-22 10:48 | disposition home or self-care (01) ==
LOC: HO.HKASLDS 10:47
PROVIDERS: PCP Student in an Organized Health Care Education/Training Program; Visit Provider Student in an Organized Health Care Education/Training Program
DX: Z76.89 Persons encountering health services in other specified circumstances (principal); Z13.9 Encounter for screening, unspecified; I10 Essential (primary) hypertension; M25.511 Pain in right shoulder; M25.512 Pain in left shoulder; G89.29 Other chronic pain; G47.00 Insomnia, unspecified; R05.3 Chronic cough; R53.83 Other fatigue; F17.210 Nicotine dependence, cigarettes, uncomplicated; Z71.6 Tobacco abuse counseling; Z98.890 Other specified postprocedural states; Z80.0 Family history of malignant neoplasm of digestive organs; Z80.42 Family history of malignant neoplasm of prostate
CPT/HCPCS: 36415; 80053; 80061; 82607; 82652; 82746; 83036; 83735; 85025; 86706; 86803; 87340; 87389

== ENCOUNTER 2025-07-22 10:47 | Outpatient (AMB) | payer OTHER, SELFPAY ==
--- NOTE | 2025-07-22 10:49 | A.OFFPC_ITS ---
Vital Signs 07/22/25 10:53 Height 5 ft 6.73 in Weight 168 lb 4 oz BMI 26.6 BP 166/101 H Blood Pressure Location Rt brachial Position Sitting Respiration 16 Pulse 76 Pulse Source Pulse Oximeter Temp 98 F Temp Source Oral Pulse Oximetry (%) 96 Oxygen Delivery Method Room Air Intake Visit Reasons: chronic pain Chemical Technician Required: No Accompanied by: Self / Same As Patient Allergies No Known Allergies Allergy (Verified 07/22/25 10:51) Tobacco use date assessed: 07/22/25 Dental Screening Dental Screen Date: 07/22/25 Did you have a dental visit in the last 12 months?: No Did you have a dental problem in the last 6 months where you did not have access to dental care?: No Was dental information given to patient?: No HPI HPI Comments History of Present Illness Details History of Present Illness The patient is a 55-year-old male presenting with chronic shoulder pain and elevated blood pressure. Chronic shoulder pain: - The patient reports bilateral shoulder pain with a history of multiple surgeries, including pins and plates in both shoulders. - The pain has persisted for several yea rs, impacting his ability to perform daily activities and play with his grandchildren. - Previous interventions include surgica l repairs and physical therapy, though the latter was not consistently pursued. Hypertension: - The patient has a history of elevated blood pressure, previously managed with medication that was discontinued due to side effects. - He reports no current use of antihyper tensive medication and experiences occasional agitation and fatigue. - A new prescription for lisinopril 10 m g was initiated to manage his blood pressure. History of clavicle fracture: - The patient sustained a clavicle fract ure five years ago, requiring surgical intervention with plates and screws. - He reports ongoing pain and numbness i n the shoulder area, affecting his range of motion. History of hip fracture: - The patient experienced a hip fracture five years ago, which was managed conservatively without surgery. - He underwent rehabilitation for the hi p, and reports occasional clicking sounds when moving. Tobacco use disorder: - The patient has a history of smoking o ne pack of cigarettes per day for several years. - He acknowledges the potential impact o n his health, including possible respiratory issues. Possible sleep apnea: - The patient reports difficulty sleepin g, with symptoms suggestive of sleep apnea, such as daytime fatigue and snoring. - A sleep study was recommended to furth er evaluate these symptoms. Review of Systems - Musculoskeletal: Reports chronic bilat eral shoulder pain, history of clavicle and hip fractures. - Cardiovascular: Reports elevated blood pressure, denies chest pain or palpitations. - Respiratory: Denies dyspnea, cough, or wheezing. - Neurological: Reports numbness in shou lder area, denies headaches or dizziness. - Sleep: Reports difficulty sleeping, po ssible sleep apnea symptoms. 10-point ROS reviewed and negative excep t as noted in HPI Past Medical History - History of clavicle fracture with surg ical intervention - History of hip fracture managed conser vatively - Hypertension, previously managed with medication - Tobacco use disorder Health Maintenance - Blood pressure monitoring at home with daily readings - Initiation of lisinopril 10 mg for hyp ertension management - Recommendation for a sleep study to ev aluate possible sleep apnea - Referral to physical therapy for [facility] - Pulmonary function test to assess lung health due to smoking history - CT scan of the lungs to screen for can cer Physical Exam General: Well-appearing, in no acute distress. Vital signs: Elevated blood pressure noted. HEENT: Normocephalic, atraumatic. PERRLA, EOMI. Conjunctiva clear, sclera anicteric. Oropharynx clear, mucous membranes moist. TMs intact bilaterally. Neck: Supple, no lymphadenopathy, no thyromegaly, no JVD or carotid bruits. Cardiovascular: RRR, normal S1/S2, no murmurs, rubs, or gallops. Peripheral pulses 2+ and symmetric. No edema. Respiratory: Lungs clear to auscultation bilaterally, no wheezes, rales, or rhonchi. Normal effort. Chronic nicotine use noted. Abdomen: Soft, non-tender, non-distended. Normoactive bowel sounds. No hepatosplenomegaly, no masses. MSK: Limited range of motion in both shoulders due to pain. History of clavicle surgery with plates and screws. No joint swelling or deformity. Normal gait. Skin: Warm, dry, intact. No rashes, lesions, or pallor. Neuro: Alert and oriented x3. Cranial nerves II-XII intact. Strength 5/5 thro ughout. Sensation intact. Reflexes 2+ symmetric. Normal coordination and gait. Psych: Appropriate mood and affect. Normal judgment and insight. Reports insomnia and agitation. Plan 1. Chronic Shoulder Pain - Plan includes referral to physical the rapy for rehabilitation and strengthening exercises. 2. Hypertension - Initiated lisinopril 10 mg daily, with follow-up in two weeks to assess blood pressure control. - Patient advised to monitor blood press ure at home twice daily and report readings. 3. Tobacco Use Disorder - Discussed the importance of smoking ce ssation and its impact on overall health. - Recommended pulmonary function test to assess lung health. 4. Possible Sleep Apnea - Recommended a sleep study to evaluate symptoms and confirm diagnosis. Discussion Notes I discussed with the patient the initiation of lisinopril 10 mg for hypertension management and the importance of monitoring blood pressure at home. We also talked about the need for a sleep study to evaluate possible sleep apnea symptoms. I emphasized the significance of smoking cessation and recommended a pulmonary function test to assess lung health. Additionally, I referred the patient to physical therapy for shoulder rehabilitation. Follow-up was scheduled in two weeks to reassess blood pressure control and review test results. Patient was informed and verbally consented to the use of an ambient scribe for clinic note documentation during this visit. Patient Instructions - Take lisinopril 10 mg daily as prescri bed. - Monitor blood pressure at home twice d aily and record the best reading. - Attend physical therapy sessions for [facility]. - Schedule and complete a sleep study to evaluate sleep apnea symptoms. - Undergo a pulmonary function test to [facility]. - Follow up in two weeks to review blood pressure readings and test results. [facility] Medical History (Updated 07/22/25 @ 11:31 by Theo Adkins MD) Insomnia Chronic hypertension Chronic shoulder pain Nicotine dependence Encounter for screening, unspecified Encounter to establish care Surgical History H/O shoulder surgery Family History (Updated 07/22/25 @ 11:01 by Misael Kauffman MA) Father Cancer of prostate Colon cancer Mother No problems noted. Social History (Updated 07/22/25 @ 11:04 by Misael Kauffman MA) Housing: House Alcohol intake: current Alcohol intake frequency: holidays/special occasions only Patient Tobacco Use Status: Current everyday Tobacco user Cigarette Packs Per Day: 1 Cigarettes Per Day: 20 Substance Use Type: Marijuana service: No Current occupational status: unemployed Cognitive needs: No Hearing needs: No Vision needs: Yes (readers ) Questionnaire PHQ-9 Over the last 2 weeks, how often have you been bothered by any of the following problems? 1. Little interest or pleasure in doing things: several days 2. Feeling down, depressed, or hopeless: more than half the days 3. Trouble falling or staying asleep, or sleeping too much: nearly every day 4. Feeling tired or having little energy: nearly every day 5. Poor appetite or overeating: several days 6. Feeling bad about yourself - or that you are a failure or have let yourself or your family down: several days 7. Trouble concentrating on things, such as reading the newspaper or watching television: not at all 8. Moving or speaking so slowly that other people could have noticed. Or the opposite - being so fidgety or restless that you have been moving around a lot more than usual: not at all 9. Thoughts that you would be better off or of hurting yourself in some way: not at all Total score: 11 Source: Developed by Drs. William Steward, Deepthi Calle, Franklin Nguyen and colleagues, with an educational jeny from [employer]. Thrive Questionnaire Date Thrive assessed: 07/22/25 I am a: Patient What is your living situation today?: I have a steady place to live Within the past 12 months, did the food you bought not last and you didn't have the money to get more?: Never true Within the past 12 months, did you worry whether your food would run out before you got money to buy more?: Never true Do you have trouble paying for medicines?: No Do you have trouble getting transportation to medical appointments?: No Do you have trouble paying your heating and electricity bill?: No Do you have trouble taking care of your child, family member or friend?: No Do you have trouble with day-to-day activities such as bathing, preparing meals, shopping, managing finances, etc.?: No Are you currently unemployed and looking for a job?: No Are you interested in more education?: No Please select the resources that you would like help with: None Currently or been in a relationship where the following occur: No concerns reported THRIVE Score: 0 AUDIT C Alcohol Use Questionnaire (AUDIT-C) 1. How often do you have a drink containing alcohol?: Monthly or less 2. How many drinks containing alcohol do you have on a typical day when you are drinking?: 1 or 2 3. How often do you have six or more drinks on one occasion?: Never Total Score: 1 THELMA-7 AMB Questionnaire THELMA-7 Date THELMA - 7 assessed: 07/22/25 Feeling nervous, anxious, or on edge: 3 = Nearly every day Not being able to stop or control worryin = More than half the days Worrying too much about different things: 3 = Nearly every day Trouble relaxin = Nearly every day Being so restless that it is hard to sit still: 3 = Nearly every day Becoming easily annoyed or irritable: 3 = Nearly every day Feeling afraid as if something awful might happen: 0 = Not at all Total THELMA-7 score (0-4 normal; 5-9 mild; 10-14 moderate; 15-21 severe): 17 Source: Developed by Drs. William Steward, Deepthi Calle, Franklin Nguyen and colleagues, with an educational jeny from [employer]. Physical exam (Primary Care) Vital Signs: Last Vital Signs Temp 98 F 07/22/25 10:53 Pulse 76 07/22/25 10:53 Resp 16 07/22/25 10:53 BP 166/101 H 07/22/25 10:53 Pulse Ox 96 07/22/25 10:53 Oxygen Delivery Method Room Air 07/22/25 10:53 BMI result Body Mass Index 26.6 Tobacco/Smoking Status: Tobacco use Status Tobacco use date assessed 07/22/25 07/22/25 11:10 Patient Tobacco Use Status Current everyday Tobacco 07/22/25 11:04 PHQ-9: PHQ-9 Score PHQ-9: Total score 11 07/22/25 11:10 Thrive Assessment: Date of Thrive Assessment Date Thrive assessed 07/22/25 07/22/25 11:10 Currently or been in a relationship where the following occur: No concerns reported Coding Level of Care Code New Pt Level 4 (47184) Diagnoses Encounter to establish care Z76.89 Encounter for screening, unspecified Z13.9 Nicotine dependence F17.200 Family history of colon cancer Z80.0 Family history of prostate cancer Z80.42 Hypertension I10 Chronic shoulder pain M25.519; G89.29 History of orthopedic surgery Z98.890 Chronic hypertension I10 Insomnia G47.00 Chronic cough R05.3 Fatigue R53.83 Assessment & Plan Assessment & Plan (1) Encounter to establish care: Code(s): Z76.89 - Persons encountering health services in other specified circumstances Category: Medical (2) Encounter for screening, unspecified: Code(s): Z13.9 - Encounter for screening, unspecified Category: Medical (3) Nicotine dependence: Code(s): F17.200 - Nicotine dependence, unspecified, uncomplicated Category: Medical (4) Family history of colon cancer: Code(s): Z80.0 - Family history of malignant neoplasm of digestive organs (5) Family history of prostate cancer: Code(s): Z80.42 - Family history of malignant neoplasm of prostate (6) Hypertension: Code(s): I10 - Essential (primary) hypertension (7) Chronic shoulder pain: Code(s): M25.519 - Pain in unspecified shoulder; G89.29 - Other chronic pain Category: Medical (8) Nicotine dependence: Code(s): F17.200 - Nicotine dependence, unspecified, uncomplicated Category: Medical (9) History of orthopedic surgery: Code(s): Z98.890 - Other specified postprocedural states Category: Medical (10) Chronic hypertension: Code(s): I10 - Essential (primary) hypertension Category: Medical (11) Chronic shoulder pain: Code(s): M25.519 - Pain in unspecified shoulder; G89.29 - Other chronic pain Category: Medical (12) Insomnia: Code(s): G47.00 - Insomnia, unspecified Category: Medical (13) Chronic cough: Code(s): R05.3 - Chronic cough (14) Fatigue: Code(s): R53.83 - Other fatigue Plan Orders: Orders Comprehensive Met. Panel Today Z13.9 - Encounter for screening, unspecified, Z76.89 - Persons encountering health services in other specified circumstances Hepatitis B Surface Antigen Today Z13.9 - Encounter for screening, unspecified, Z76.89 - Persons encountering health services in other specified circumstances Lipid Panel Today Z13.9 - Encounter for screening, unspecified, Z76.89 - Persons encountering health services in other specified circumstances Vitamin B12 and Folate Today Z13.9 - Encounter for screening, unspecified, Z76.89 - Persons encountering health services in other specified circumstances Vitamin D 1,25 dihydroxy Today Z13.9 - Encounter for screening, unspecified, Z76.89 - Persons encountering health services in other specified circumstances PFT pulmonary function test Today F17.200 - Nicotine dependence, unspecified, uncomplicated PT Evaluation and Treatment Today G89.29 - Other chronic pain, M25.519 - Pain in unspecified shoulder, Z98.890 - Other specified postprocedural states CT lung screening Today F17.200 - Nicotine dependence, unspecified, uncomplicated ECG 12 lead EKG Today F17.200 - Nicotine dependence, unspecified, uncomplicated, I10 - Essential (primary) hypertension, Z98.890 - Other specified postprocedural states RT home sleep study Today G47.00 - Insomnia, unspecified Complete Blood Count Auto Diff Today Z13.9 - Encounter for screening, unspecified, Z76.89 - Persons encountering health services in other specified circumstances Hemoglobin A1c Today Z13.9 - Encounter for screening, unspecified, Z76.89 - Persons encountering health services in other specified circumstances Hepatitis B Surface Antibody Today Z13.9 - Encounter for screening, unspecified, Z76.89 - Persons encountering health services in other specified circumstances Hepatitis C Antibody Today Z13.9 - Encounter for screening, unspecified, Z76.89 - Persons encountering health services in other specified circumstances HIV Ab/Ag Today Z13.9 - Encounter for screening, unspecified, Z76.89 - Persons encountering health services in other specified circumstances Magnesium Today Z13.9 - Encounter for screening, unspecified, Z76.89 - Persons encountering health services in other specified circumstances UA CC w/rflx Micro + Cult Today Z13.9 - Encounter for screening, unspecified, Z76.89 - Persons encountering health services in other specified circumstances Medications: New lisinopril 10 mg PO DAILY 30 tabs 0RF Discontinued doxycycline hyclate Discontinued Reason: Patient Completed Course 100 mg PO BID 7 days 14 tabs 0RF cephalexin Discontinued Reason: Patient Completed Course 500 mg PO Q6H 7 days 28 caps 0RF
[2025-07-22 10:53] VITALS: BP 166/101; PULSE 76; RESP 16; TEMP 36.6; O2SAT 96; BMI 26.6
== END 2025-07-22 11:36 | disposition home or self-care (01) ==
LOC: HO.HMCFMS 10:47
PROVIDERS: PCP Student in an Organized Health Care Education/Training Program; Visit Provider Student in an Organized Health Care Education/Training Program
DX: I10 Essential (primary) hypertension (principal); F17.200 Nicotine dependence, unspecified, uncomplicated; M25.519 Pain in unspecified shoulder; G89.29 Other chronic pain; Z80.42 Family history of malignant neoplasm of prostate; Z98.890 Other specified postprocedural states; Z80.0 Family history of malignant neoplasm of digestive organs; G47.00 Insomnia, unspecified; R05.3 Chronic cough; R53.83 Other fatigue

== ENCOUNTER 2025-07-31 08:57 | Outpatient (AMB) | payer OTHER, SELFPAY ==
[2025-07-31 08:59] VITALS: BP 178/97; PULSE 70; RESP 16; TEMP 36.5; O2SAT 97; BMI 27.2
--- NOTE | 2025-07-31 08:59 | A.OFFPC_ITS ---
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 Prediabetes: - Current hemoglobin A1c is 6.0% indicat ing prediabetes. - Previous A1c was 5.8% in 2021. Hyperlipidemia: - Total cholesterol is elevated at 215 m g/dL. LDL is 143 mg/dL, and HDL is 50 mg/dL. Essential Hypertension: - Hypertension diagnosed, currently non- compliant with lisinopril due to financial issues. chronic right shoulder pain he does not want to take any pain medication he wants to explore different options for pain management this has been chronic and ongoing he recently had an x-ray performed of the right shoulder for social security doctor? He is pending a PT referral appointment Insomnia At home sleep study referral provided pending results Review of Systems - Cardiovascular: Denies edema but repor ts difficulty taking blood pressure medication due to financial issues. - Neuro/Psych: Denies mood disturbances, acknowledges emotional distress due to financial concerns. - Endocrine: Reports previously eating h ealthy. - Musculoskeletal: Reports shoulder pain and discomfort from previous surgeries. - Respiratory: Denies respiratory issues such as sleep apnea based on his own symptoms. 10-point ROS reviewed and negative excep t as noted in HPI Past Medical History - History of hypertension. - Prediabetes diagnosed. - Hyperlipidemia diagnosed. - Shoulder surgery status post plate and screw fixation. Health Maintenance - Recommendation for referral to a [facility] nurse navigator for medication assistance. - Advised to see a dietitian to manage p rediabetes and lower cholesterol. - Discussed potential financial legal assistant for healthcare from [facility]. Physical Exam General: Well-appearing, in no acute distress. Vital signs: Within normal limits. HEENT: Normocephalic, atraumatic. PERRLA, EOMI. Conjunctiva clear, sclera anicteric. Oropharynx clear, mucous membranes moist. TMs intact bilaterally. Neck: Supple, no lymphadenopathy, no thyromegaly, no JVD or carotid bruits. Cardiovascular: RRR, normal S1/S2, no murmurs, rubs, or gallops. Peripheral pulses 2+ and symmetric. No edema. Respiratory: Lungs clear to auscultation bilaterally, no wheezes, rales, or rhonchi. Normal effort. Abdomen: Soft, non-tender, non-distended. Normoactive bowel sounds. No hepatosplenomegaly, no masses. MSK: limited range of motion of the right shoulder has difficulty taken off and putting on his jacketno joint swelling or deformity. Normal gait. Skin: Warm, dry, intact. No rashes, lesions, or pallor. Neuro: Alert and oriented x3. Cranial nerves II-XII intact. Strength 5/5 throughout. Sensation intact. Reflexes 2+ symmetric. Normal coordination and gait. Psych: Tired, appropriate mood and affect. Normal judgment and insight. Plan 1. Prediabetes - Referral to dietitian for dietary celeste robbins. 2. Hyperlipidemia - Prescription for statin medication dep endent on financial feasibility. 3. Essential Hypertension - Referral to community resources for as sistance with medication compliance. Discussion Notes During the visit, I discussed with the patient his laboratory results, indicating prediabetes marked by an A1c of 6.0%, suggesting lifestyle and dietary adjustments to manage this condition. We reviewed the implications of his elevated cholesterol levels and the importance of adherence to statin therapy. The risks of cardiovascular events associated with unmanaged hyperlipidemia and hypertension were explained. For his hypertension, I emphasized the need to continue medication and the availability of community resources to assist with medication access. I explained the potential benefits of consulting with a dietitian and exploring pain management resources for his shoulder discomfort. Patient was informed and verbally consented to the use of an ambient scribe for clinic note documentation during this visit. Patient Instructions - Follow up with referrals to community nurse navigator for medication assistance. - Schedule and attend appointments with a dietitian for dietary management. - Take prescribed medications consistent ly once available. - Monitor blood pressure regularly and a dhere to any prescribed medications. - Report any new or worsening symptoms t o a healthcare provider promptly. - Contact the office if additional kaya tance with medical paperwork is needed. - Complete home sleep study , to rule ou t any undiagnosed sleep conditions. Total time spent caring for the patient today was 45 minutes. This includes time spent before the visit reviewing the chart, time spent documenting, and time spent reviewing laboratory results, diagnostic imaging, medications, performing a medically necessary evaluation, counseling on diagnoses, care coordination, ordering appropriate tests, ordering appropriate medications, review of tests performed by other providers, reporting test results with the patient [facility] Medical History (Updated 07/31/25 @ 09:29 by Theo Adkins MD) Chronic right shoulder pain Insomnia Chronic hypertension Chronic shoulder pain Nicotine dependence Encounter for screening, unspecified Encounter to establish care Surgical History History of orthopedic surgery H/O shoulder surgery Family History Father Cancer of prostate Colon cancer Mother No problems noted. Social History Housing: House Alcohol intake: current Alcohol intake frequency: holidays/special occasions only Patient Tobacco Use Status: Current everyday Tobacco user Cigarette Packs Per Day: 1 Cigarettes Per Day: 20 Substance Use Type: Marijuana service: No Current occupational status: unemployed Cognitive needs: No Hearing needs: No Vision needs: Yes (readers ) Questionnaire PHQ-9 Over the last 2 weeks, how often have you been bothered by any of the following problems? 1. Little interest or pleasure in doing things: several days 2. Feeling down, depressed, or hopeless: more than half the days 3. Trouble falling or staying asleep, or sleeping too much: nearly every day 4. Feeling tired or having little energy: nearly every day 5. Poor appetite or overeating: several days 6. Feeling bad about yourself - or that you are a failure or have let yourself or your family down: several days 7. Trouble concentrating on things, such as reading the newspaper or watching television: not at all 8. Moving or speaking so slowly that other people could have noticed. Or the opposite - being so fidgety or restless that you have been moving around a lot more than usual: not at all 9. Thoughts that you would be better off or of hurting yourself in some way: not at all Total score: 11 Source: Developed by Drs. William Steward, Deepthi Calle, Franklin Nguyen and colleagues, with an educational jeny from [employer]. Thrive Questionnaire Date Thrive assessed: 07/20/25 I am a: Patient What is your living situation today?: I have a steady place to live Within the past 12 months, did the food you bought not last and you didn't have the money to get more?: I choose not to answer this question Within the past 12 months, did you worry whether your food would run out before you got money to buy more?: Sometimes True Do you have trouble paying for medicines?: Yes Do you have trouble getting transportation to medical appointments?: Yes Do you have trouble paying your heating and electricity bill?: No Do you have trouble taking care of your child, family member or friend?: No Are you currently unemployed and looking for a job?: I choose not to answer this question Are you interested in more education?: I choose not to answer this question Currently or been in a relationship where the following occur: No concerns reported THRIVE Score: 2 AUDIT C Alcohol Use Questionnaire (AUDIT-C) 1. How often do you have a drink containing alcohol?: Monthly or less 2. How many drinks containing alcohol do you have on a typical day when you are drinking?: 1 or 2 3. How often do you have six or more drinks on one occasion?: Never Total Score: 1 THELMA-7 AMB Questionnaire THELMA-7 Date THELMA - 7 assessed: 07/22/25 Feeling nervous, anxious, or on edge: 3 = Nearly every day Not being able to stop or control worryin = More than half the days Worrying too much about different things: 3 = Nearly every day Trouble relaxin = Nearly every day Being so restless that it is hard to sit still: 3 = Nearly every day Becoming easily annoyed or irritable: 3 = Nearly every day Feeling afraid as if something awful might happen: 0 = Not at all Total THELMA-7 score (0-4 normal; 5-9 mild; 10-14 moderate; 15-21 severe): 17 Source: Developed by Drs. William Steward, Deepthi Calle, Franklin Nguyen and colleagues, with an educational jeny from [employer]. Physical exam (Primary Care) Vital Signs: Last Vital Signs Temp 97.7 F 07/31/25 08:59 Pulse 70 07/31/25 08:59 Resp 16 07/31/25 08:59 BP 178/97 H 07/31/25 08:59 Pulse Ox 97 07/31/25 08:59 Oxygen Delivery Method Room Air 07/31/25 08:59 BMI result Body Mass Index 27.2 Tobacco/Smoking Status: Tobacco use Status Tobacco use date assessed 07/22/25 07/31/25 09:07 Patient Tobacco Use Status Current everyday Tobacco 07/31/25 09:07 PHQ-9: PHQ-9 Score PHQ-9: Total score 11 07/31/25 09:07 Thrive Assessment: Date of Thrive Assessment Date Thrive assessed 07/20/25 07/31/25 09:07 Currently or been in a relationship where the following occur: No concerns reported Coding Level of Care Code Est Pt Level 4 (96551) Diagnoses Chronic hypertension I10 Chronic shoulder pain M25.519; G89.29 Chronic right shoulder pain M25.511; G89.29 Insomnia G47.00 Nicotine dependence F17.200 Prediabetes R73.03 Hyperlipidemia E78.5 Assessment & Plan Assessment & Plan (1) Chronic hypertension: Code(s): I10 - Essential (primary) hypertension Category: Medical (2) Chronic shoulder pain: Code(s): M25.519 - Pain in unspecified shoulder; G89.29 - Other chronic pain Category: Medical (3) Chronic right shoulder pain: Code(s): M25.511 - Pain in right shoulder; G89.29 - Other chronic pain Category: Medical (4) Insomnia: Code(s): G47.00 - Insomnia, unspecified Category: Medical (5) Nicotine dependence: Code(s): F17.200 - Nicotine dependence, unspecified, uncomplicated Category: Medical (6) Prediabetes: Code(s): R73.03 - Prediabetes (7) Hyperlipidemia: Code(s): E78.5 - Hyperlipidemia, unspecified Plan Orders: Referrals Pain Management Referral G89.29 - Other chronic pain, M25.511 - Pain in right shoulder Nurse Navigator Referral I10 - Essential (primary) hypertension Medications: New rosuvastatin 10 mg PO DAILY 90 tabs 0RF
== END 2025-07-31 09:30 | disposition home or self-care (01) ==
LOC: HO.HMCFMS 08:58
PROVIDERS: PCP Student in an Organized Health Care Education/Training Program; Referring Provider Student in an Organized Health Care Education/Training Program; Visit Provider Student in an Organized Health Care Education/Training Program
DX: I10 Essential (primary) hypertension (principal); M25.519 Pain in unspecified shoulder; G89.29 Other chronic pain; M25.511 Pain in right shoulder; G47.00 Insomnia, unspecified; F17.200 Nicotine dependence, unspecified, uncomplicated; R73.03 Prediabetes; E78.5 Hyperlipidemia, unspecified

== ENCOUNTER → 2025-07-31 08:57 | Outpatient (BNVA) | payer OTHER, SELFPAY | PROVIDERS: PCP Student in an Organized Health Care Education/Training Program; Visit Provider Student in an Organized Health Care Education/Training Program | DX: I10 Essential (primary) hypertension (principal); M25.511 Pain in right shoulder; G89.29 Other chronic pain; G47.00 Insomnia, unspecified; R73.03 Prediabetes; E78.5 Hyperlipidemia, unspecified; F17.200 Nicotine dependence, unspecified, uncomplicated; Z13.30 Encounter for screening examination for mental health and behavioral disorders, unspecified | CPT/HCPCS: 99212 ==

== ENCOUNTER 2025-08-20 10:46 | Outpatient (AMB) | payer OTHER, SELFPAY ==
[2025-08-20 10:49] VITALS: BP 139/74; PULSE 85; RESP 16; TEMP 36.7; O2SAT 94; BMI 26.5
--- NOTE | 2025-08-20 10:50 | A.OFFVIS_ITS ---
Vital Signs 08/20/25 10:49 Height 5 ft 6.73 in Weight 168 lb BMI 26.5 BP 139/74 Blood Pressure Location Lt brachial Position Sitting Respiration 16 Pulse 85 Pulse Source Pulse Oximeter Temp 98.1 F Temp Source Oral Pulse Oximetry (%) 94 Oxygen Delivery Method Room Air Intake Visit Reasons: Shoulder pain Allergies No Known Allergies Allergy (Verified 08/20/25 10:50) HPI Comments Details: History of Present Illness The patient is a 55 year old male presenting with complaints of chronic pain and for assistance with paperwork. Chronic Pain: The patient reports he is in significant pain, describing his shoulders as killing me and that his neck hurts. He also complains of a freezing sensation in a finger and questions if he has carpal tunnel or arthritis. He has a history of generalized pain and has had prior X-rays which showed an orthopedic plate. The pain is significant enough that he is applying for Social Security benefits. Hypertension: The patient has a history of hypertension, with a previous blood pressure reading of 178. He reports he is taking his medication, and his current blood pressure is 139 systolic. Sleep Disturbance: The patient notes that a pain management provider suggested a sleep study, but he is hesitant as his mother states he does not snore. He attributes his poor sleep, characterized by tossing and turning, to being unable to get comfortable due to pain, which results in him feeling tired. Surgical History: - History of prior surgery with placement of an orthopedic plate. Medications: - Unspecified medication for hypertension. Social History: - Employment: Patient is currently applying for Social Security benefits due to chronic pain affecting his ability to work. 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 Diagnostic Results: - Imaging: Patient has had previous X-rays which showed an orthopedic plate. Past Medical History - Hypertension - Chronic shoulder pain - History of orthopedic surgery with hardware placement Health Maintenance - Patient is adherent to his blood pressure medication, resulting in improved control. - Has a referral to pain management for further evaluation and treatment of chronic pain. [facility] Medical History (Updated 08/20/25 @ 20:49 by Theo Adkins MD) Arthritis Aching pain Chronic right shoulder pain Insomnia Chronic hypertension Chronic shoulder pain Nicotine dependence Encounter for screening, unspecified Encounter to establish care Surgical History History of orthopedic surgery H/O shoulder surgery Family History Father Cancer of prostate Colon cancer Mother No problems noted. Social History Housing: House Alcohol intake: current Alcohol intake frequency: holidays/special occasions only Patient Tobacco Use Status: Current everyday Tobacco user Cigarette Packs Per Day: 1 Cigarettes Per Day: 20 Substance Use Type: Marijuana service: No Current occupational status: unemployed Cognitive needs: No Hearing needs: No Vision needs: Yes (readers ) Review of Systems Narrative Review of Systems - Constitutional: Reports fatigue. - Musculoskeletal: Reports severe pain in his shoulders, neck, and hands. - Neurological: Reports a freezing sensation in one finger. - Sleep: Reports tossing and turning and inability to get comfortable due to pain. - Denies snoring. 10-point ROS reviewed and negative except as noted in HPI Physical Exam Exam Exam: Physical Exam General: Well-appearing, in no acute distress. Vital signs: Blood pressure is 139, improved from previous reading of 178. HEENT: Normocephalic, atraumatic. PERRLA, EOMI. Conjunctiva clear, sclera anicteric. Oropharynx clear, mucous membranes moist. TMs intact bilaterally. Neck: Supple, no lymphadenopathy, no thyromegaly, no JVD or carotid bruits. Patient reports neck pain. Cardiovascular: RRR, normal S1/S2, no murmurs, rubs, or gallops. Peripheral pulses 2+ and symmetric. No edema. Respiratory: Lungs clear to auscultation bilaterally, no wheezes, rales, or rhonchi. Normal effort. Abdomen: Soft, non-tender, non-distended. Normoactive bowel sounds. No hepatosplenomegaly, no masses. MSK: Full range of motion, no joint swelling or deformity. Patient reports chronic shoulder pain and finger stiffness, possibly related to arthritis or carpal tunnel syndrome. Normal gait. Skin: Warm, dry, intact. No rashes, lesions, or pallor. Neuro: Alert and oriented x3. Cranial nerves II-XII intact. Strength 5/5 throughout. Sensation intact. Reflexes 2+ symmetric. Normal coordination and gait. Psych: Appropriate mood and affect. Normal judgment and insight. Patient reports difficulty sleeping due to pain. Vital Signs: Last Vital Signs Temp 98.1 F 08/20/25 10:49 Pulse 85 08/20/25 10:49 Resp 16 08/20/25 10:49 BP 139/74 08/20/25 10:49 Pulse Ox 94 08/20/25 10:49 Oxygen Delivery Method Room Air 08/20/25 10:49 BMI result Body Mass Index 26.5 Assessment & Plan Assessment & Plan (1) Chronic right shoulder pain: Code(s): M25.511 - Pain in right shoulder; G89.29 - Other chronic pain Category: Medical (2) Chronic hypertension: Code(s): I10 - Essential (primary) hypertension Category: Medical (3) Insomnia: Code(s): G47.00 - Insomnia, unspecified Category: Medical (4) Nicotine dependence: Code(s): F17.200 - Nicotine dependence, unspecified, uncomplicated Category: Medical (5) Aching pain: Code(s): R52 - Pain, unspecified Category: Medical (6) Arthritis: Code(s): M19.90 - Unspecified osteoarthritis, unspecified site Category: Medical Plan Consent Patient was informed and verbally consented to the use of an ambient scribe for clinic note documentation during this visit. Plan 1. Chronic Pain - The patient is encouraged to follow up with his pain management referral to explore different treatment modalities for his generalized chronic pain. - The goal is to find alternatives to oral pain medications, such as nerve ablation. - Will complete paperwork to support his application for Social Security benefits. 2. Hypertension - The patient's blood pressure shows significant improvement, down to 139 systolic from 178 systolic. - The improvement is attributed to medication adherence. - Continue current hypertension medication. 3. Sleep Disturbance - A pain management provider recommended a sleep study, though the patient is hesitant. - The patient believes his poor sleep is secondary to his chronic pain. - The current plan is to focus on pain management; the need for a sleep study will be re-evaluated later. Discussion Notes I commended the patient on his improved blood pressure, which has decreased to 139 systolic from a previous 178 systolic, likely due to medication adherence. We discussed his significant chronic pain in his shoulders and neck, and I reinforced the plan to follow up with pain management. I explained that a pain specialist can offer different treatment modalities, such as nerve ablation, to avoid reliance on oral medications, which aligns with his preferences. We discussed an earlier recommendation for a sleep study, and I acknowledged his belief that his poor sleep is a direct result of being uncomfortable from pain. I agreed to complete the necessary paperwork to support his application for Social Security benefits. Patient Instructions - Continue to take your blood pressure medication as you have been. - Keep your appointment with the paint spray inspector to find better ways to treat your pain. - You can forklift picker the paperwork I filled out for you next week. Medical Decision Making The patient is a 55-year-old male with chronic, debilitating musculoskeletal pain and well-controlled hypertension. His primary issues are chronic pain in the shoulders and neck, which have a significant impact on his quality of life and sleep, prompting him to seek disability benefits. The primary management strategy is to refer him to pain management for specialized care, with an emphasis on non-pharmacologic or procedural interventions like nerve ablation to avoid the use of pain pills. His hypertension is well-managed on his current medication, as shown by the significant drop in his blood pressure from 178 to 139 systolic, so no changes are needed. While a sleep study was previously suggested by another provider, the patient's history strongly indicates his sleep disturbance is secondary to uncontrolled pain; therefore, addressing the pain is the priority. Given the functional limitations described by the patient, I will complete the necessary medical forms to support his application for Social Security. Total time spent caring for the patient today was 30 minutes. This includes time spent before the visit reviewing the chart, time spent documenting, and time spent reviewing laboratory results, diagnostic imaging, medications, performing a medically necessary evaluation, counseling on diagnoses, care coordination. Medications: New cyclobenzaprine 5 mg PO BEDTIME 30 tabs 0RF Coding Level of Care Code Est Pt Level 4 (20426) Diagnoses Chronic right shoulder pain M25.511; G89.29 Chronic hypertension I10 Insomnia G47.00 Nicotine dependence F17.200 Aching pain R52 Arthritis M19.90
== END 2025-08-20 11:35 | disposition home or self-care (01) ==
LOC: HO.HMCFMS 10:47
PROVIDERS: PCP Student in an Organized Health Care Education/Training Program; Visit Provider Student in an Organized Health Care Education/Training Program
DX: M25.511 Pain in right shoulder (principal); G89.29 Other chronic pain; I10 Essential (primary) hypertension; G47.00 Insomnia, unspecified; F17.200 Nicotine dependence, unspecified, uncomplicated; R52 Pain, unspecified; M19.90 Unspecified osteoarthritis, unspecified site

== ENCOUNTER → 2025-08-20 10:46 | Outpatient (BNVA) | payer OTHER, SELFPAY | PROVIDERS: PCP Student in an Organized Health Care Education/Training Program; Visit Provider Student in an Organized Health Care Education/Training Program | DX: M25.511 Pain in right shoulder (principal); G89.29 Other chronic pain; I10 Essential (primary) hypertension; G47.00 Insomnia, unspecified; M19.90 Unspecified osteoarthritis, unspecified site; F17.210 Nicotine dependence, cigarettes, uncomplicated; Z79.899 Other long term (current) drug therapy | CPT/HCPCS: 99212 ==

== ENCOUNTER 2025-08-27 08:16 | Outpatient (AMB) | payer OTHER, SELFPAY ==
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
[2025-08-27 08:24] VITALS: BP 157/113; PULSE 78; O2SAT 95; BMI 26.4
[2025-08-27 08:25] VITALS: BP 147/119
== END 2025-08-27 08:59 | disposition home or self-care (01) ==
PROVIDERS: PCP Student in an Organized Health Care Education/Training Program; Visit Provider Nurse Practitioner Family
DX: M25.519 Pain in unspecified shoulder (principal); G89.29 Other chronic pain; Z98.890 Other specified postprocedural states; M25.511 Pain in right shoulder; M25.512 Pain in left shoulder; M54.2 Cervicalgia; M47.812 Spondylosis without myelopathy or radiculopathy, cervical region
CPT/HCPCS: 99204

== ENCOUNTER → 2025-08-27 08:16 | Outpatient (BNVA) | payer OTHER, SELFPAY | PROVIDERS: PCP Student in an Organized Health Care Education/Training Program; Visit Provider Nurse Practitioner Family | DX: M25.511 Pain in right shoulder (principal); G89.29 Other chronic pain; M25.512 Pain in left shoulder; M54.2 Cervicalgia; M47.812 Spondylosis without myelopathy or radiculopathy, cervical region | CPT/HCPCS: 99202 ==

== ENCOUNTER 2025-09-11 14:08 | Outpatient (AMB) | payer OTHER, SELFPAY ==
--- NOTE | 2025-09-11 14:11 | A.OFFPC_ITS ---
Vital Signs 09/11/25 14:16 Height 5 ft 6.73 in Weight 166 lb 6 oz BMI 26.3 BP 143/96 H Blood Pressure Location Rt brachial Position Sitting Respiration 17 Pulse 80 Pulse Source Monitor Temp 98 F Temp Source Oral Pulse Oximetry (%) 95 Oxygen Delivery Method Room Air Intake Visit Reasons: BP Recheck Intake Note: BP recheck Oral Health Therapist Required: No Allergies acetaminophen (From Percocet) Adverse Reaction (Unknown, Verified 09/11/25 14:14) Itching oxycodone (From Percocet) Adverse Reaction (Unknown, Verified 09/11/25 14:14) Itching Tobacco use date assessed: 07/22/25 Dental Screening Dental Screen Date: 07/22/25 HPI HPI Comments History of Present Illness0 Details History of Present Illness The patient is a 55 year old individual presenting with chronic pain, sinus congestion, and paresthesia. Chronic Pain: The patient was seen at a pain management clinic, but the insurance did not cover the recommended treatment. The patient was prescribed gabapentin, but does not like taking it due to experiencing adverse mood-related side effects the following day. The patient expressed a desire to manage pain without pills and reports being tired of the ongoing pain. Paresthesia and cold sensation of left fifth finger: The patient reports that the left pinky finger gets freezing cold while the other fingers remain warm. Chronic Sinusitis: The patient reports blocked sinuses and difficulty breathing upon waking in the morning. The patient also experiences post-nasal drainage that goes into the stomach and causes emesis. Hypertension: The patient reports taking medication for hypertension and has refills available. The blood pressure was noted to be a little high during the visit, which the patient attributes to smoking a cigarette just prior to the appointment. Blurred Vision: The patient complains of blurry vision and requests a referral to an oil well gun perforator operator. Medications: - Unspecified blood pressure medication - Gabapentin (prescribed by pain managem ent, but the patient does not like it) Social History: - Substance Use: The patient reports smo lázaro cigarettes, including one just before the visit. Diagnostic Results: - Vitals: Blood pressure was noted to be a little high at the visit. Past Medical History - Hypertension, managed with medication - Chronic pain - History of a previous clavicle/shoulde r injury - Adverse reaction to gabapentin Health Maintenance [facility] Medical History (Updated 09/11/25 @ 14:28 by Theo Adkins MD) Vision blurred Vision abnormalities Post-nasal drip Allergic rhinitis Degenerative joint disease Hypertension Arthritis Aching pain Chronic right shoulder pain Insomnia Chronic hypertension Chronic shoulder pain Nicotine dependence Encounter for screening, unspecified Encounter to establish care Surgical History History of orthopedic surgery H/O shoulder surgery Family History Father Cancer of prostate Colon cancer Mother No problems noted. Social History Housing: House Alcohol intake: current Alcohol intake frequency: holidays/special occasions only Patient Tobacco Use Status: Current everyday Tobacco user Cigarette Packs Per Day: 1 Cigarettes Per Day: 20 Substance Use Type: Marijuana service: No Current occupational status: unemployed Cognitive needs: No Hearing needs: No Vision needs: Yes (readers ) Questionnaire Thrive Questionnaire Date Thrive assessed: 07/20/25 I am a: Patient What is your living situation today?: I have a steady place to live Within the past 12 months, did the food you bought not last and you didn't have the money to get more?: I choose not to answer this question Within the past 12 months, did you worry whether your food would run out before you got money to buy more?: Sometimes True Do you have trouble paying for medicines?: Yes Do you have trouble getting transportation to medical appointments?: Yes Do you have trouble paying your heating and electricity bill?: No Do you have trouble taking care of your child, family member or friend?: No Are you currently unemployed and looking for a job?: I choose not to answer this question Are you interested in more education?: I choose not to answer this question Currently or been in a relationship where the following occur: No concerns reported THRIVE Score: 2 THELMA-7 AMB Questionnaire THELMA-7 Date THELMA - 7 assessed: 07/22/25 Source: Developed by Drs. William Steward, Deepthi Calle, Franklin Nguyen and colleagues, with an educational jeny from [employer]. Review of Systems Narrative Review of Systems - Eyes: Reports blurry vision. - ENT: Reports blocked sinuses, postnasal drip causing emesis, and morning dyspnea. - Neurologic: Reports left fifth digit feels freezing cold and is numb. - Musculoskeletal: Reports generalized chronic pain. 10-point ROS reviewed and negative except as noted in HPI Physical exam (Primary Care) Vital Signs: Last Vital Signs Temp 98 F 09/11/25 14:16 Pulse 80 09/11/25 14:16 Resp 17 09/11/25 14:16 BP 143/96 H 09/11/25 14:16 Pulse Ox 95 09/11/25 14:16 Oxygen Delivery Method Room Air 09/11/25 14:16 BMI result Body Mass Index 26.3 Tobacco/Smoking Status: Tobacco use Status Tobacco use date assessed 07/22/25 09/11/25 14:11 Patient Tobacco Use Status Current everyday Tobacco 09/11/25 14:11 Thrive Assessment: Date of Thrive Assessment Date Thrive assessed 07/20/25 09/11/25 14:11 Currently or been in a relationship where the following occur: No concerns reported Narrative Physical Exam General: Well-appearing, in no acute distress. Vital signs: Blood pressure slightly elevated. HEENT: Normocephalic, atraumatic. PERRLA, EOMI. Conjunctiva clear, sclera anicteric. Oropharynx clear, mucous membranes moist. TMs intact bilaterally. Sinuses blocked, nasal congestion noted. Neck: Supple, no lymphadenopathy, no thyromegaly, no JVD or carotid bruits. Cardiovascular: RRR, normal S1/S2, no murmurs, rubs, or gallops. Peripheral pulses 2+ and symmetric. No edema. Respiratory: Lungs clear to auscultation bilaterally, no wheezes, rales, or rhonchi. Normal effort. Abdomen: Soft, non-tender, non-distended. Normoactive bowel sounds. No hepatosplenomegaly, no masses. MSK: Full range of motion, no joint swelling or deformity. Normal gait. Right pinky gets freezing cold, left pinky warm. Skin: Warm, dry, intact. No rashes, lesions, or pallor. Neuro: Alert and oriented x3. Cranial nerves II-XII intact. Strength 5/5 throughout. Sensation intact. Reflexes 2+ symmetric. Normal coordination and gait. Psych: Appropriate mood and affect. Normal judgment and insight. Mood changes noted with gabapentin use. Coding Level of Care Code Est Pt Level 3 (20514) Diagnoses Allergic rhinitis J30.9 Post-nasal drip R09.82 Chronic right shoulder pain M25.511; G89.29 Chronic left shoulder pain M25.512; G89.29 History of orthopedic surgery Z98.890 Arthritis M19.90 Chronic hypertension I10 Assessment & Plan Assessment & Plan (1) Allergic rhinitis: Code(s): J30.9 - Allergic rhinitis, unspecified Category: Medical (2) Post-nasal drip: Code(s): R09.82 - Postnasal drip Category: Medical (3) Chronic right shoulder pain: Code(s): M25.511 - Pain in right shoulder; G89.29 - Other chronic pain Category: Medical (4) Chronic left shoulder pain: Code(s): M25.512 - Pain in left shoulder; G89.29 - Other chronic pain Category: Medical (5) History of orthopedic surgery: Code(s): Z98.890 - Other specified postprocedural states Category: Surgical (6) Arthritis: Code(s): M19.90 - Unspecified osteoarthritis, unspecified site Category: Medical (7) Chronic hypertension: Code(s): I10 - Essential (primary) hypertension Category: Medical Plan Consent Patient was informed and verbally consented to the use of an ambient scribe for clinic note documentation during this visit. Plan 1. Chronic Sinusitis - Prescribe cetirizine for allergies. - Prescribe a nasal spray to be used twice daily, in the morning and at night. 2. Chronic Pain & Paresthesia Of Left Finger - Order x-rays to investigate the bone-related complaints. appt pending - Provide a referral to orthopedics for further evaluation. 3. Blurred Vision - Provide a referral to an oil well gun perforator operator for evaluation of blurry vision. 4. Hypertension - The patient will continue taking the current blood pressure medication. - The patient has confirmed that the prescription has been refilled and is not in need of a new one. Discussion Notes I discussed the plan for the patient's sinus complaints, which includes initiating cetirizine for allergies and a nasal spray regimen. We discussed the chronic pain and new finger symptoms, and I am ordering x-rays and placing a referral to orthopedics for specialist evaluation. I also placed a referral for an oil well gun perforator operator to evaluate the patient's complaint of blurry vision. The patient understands to continue the current blood pressure medication, as refills are available. We noted the patient's prior unsatisfactory experience with pain management and an adverse reaction to gabapentin. Patient Instructions - Take one allergy pill (cetirizine) every day. - Use your new nasal spray every morning and every night, using two sprays in each nostril each time. - You will be getting x-rays of your bones to look into your pain. - You will get a call from a bone specialist (orthopedics) to set up an appointment. - We are also giving you a referral to see an eye doctor (oil well gun perforator operator) for your blurry vision. - Continue to take your blood pressure medicine as you usually do. Medical Decision Making The patient is a 55-year-old individual presenting with multiple chronic complaints including pain, sinus congestion, and new-onset digital paresthesia. The patient's sinus symptoms, including congestion and post-nasal drip causing nausea, are likely related to allergies, and thus I have prescribed cetirizine and a nasal spray. For the chronic pain and the new sensory complaint in the left fifth digit, a structural or bony etiology needs to be ruled out. Given the patient's intolerance to gabapentin and unsatisfactory experience with a pain specialist, an orthopedic consultation and initial imaging with x-rays are warranted. The new complaint of blurred vision necessitates a referral to an oil well gun perforator operator for a comprehensive eye exam. The patient's hypertension is being managed with medication, which will be continued; the elevated reading today is noted but may be situational due to recent nicotine use as stated by the patient. Total Time Statement 20 min Total time spent caring for the patient today includes pre-visit chart review, documentation, review of laboratory and diagnostic imaging results, medication reconciliation, medically necessary evaluation, counseling on diagnoses, care coordination, ordering appropriate tests and medications, review of tests performed by other providers, reporting test results to the patient, and communication with other healthcare providers. Orders: Referrals Orthopedics Referral G89.29 - Other chronic pain, M25.511 - Pain in right shoulder, M25.512 - Pain in left shoulder, Z98.890 - Other specified postprocedural states Ophthalmology Referral H53.8 - Other visual disturbances, H53.9 - Unspecified visual disturbance Medications: New cetirizine (Allergy Relief (cetirizine)) 10 mg PO DAILY PRN 90 tabs 0RF allergy symptoms azelastine administer into each nostril 2 sprays intranasal BID 30 mL 0RF
[2025-09-11 14:16] VITALS: BP 143/96; PULSE 80; RESP 17; TEMP 36.6; O2SAT 95; BMI 26.3
== END 2025-09-11 14:31 | disposition home or self-care (01) ==
PROVIDERS: PCP Student in an Organized Health Care Education/Training Program; Visit Provider Student in an Organized Health Care Education/Training Program
DX: J30.9 Allergic rhinitis, unspecified (principal); R09.82 Postnasal drip; M25.511 Pain in right shoulder; G89.29 Other chronic pain; M25.512 Pain in left shoulder; Z98.890 Other specified postprocedural states; M19.90 Unspecified osteoarthritis, unspecified site; I10 Essential (primary) hypertension

== ENCOUNTER → 2025-09-11 14:08 | Outpatient (BNVA) | payer OTHER, SELFPAY | PROVIDERS: PCP Nurse Practitioner Family; Visit Provider Student in an Organized Health Care Education/Training Program | DX: J32.9 Chronic sinusitis, unspecified (principal); J30.9 Allergic rhinitis, unspecified; R09.82 Postnasal drip; M25.511 Pain in right shoulder; G89.29 Other chronic pain; M25.512 Pain in left shoulder; M19.90 Unspecified osteoarthritis, unspecified site; I10 Essential (primary) hypertension; H53.8 Other visual disturbances; R20.2 Paresthesia of skin | CPT/HCPCS: 99212 ==